=== PATIENT | male | born 1960 | race Caucasian/White ===

== ENCOUNTER 2025-04-20 14:11 | Outpatient (AMB) | payer MEDICARE, SELFPAY ==
--- NOTE | 2025-04-20 14:19 | A.OFFPC_ITS ---
Vital Signs 04/20/25 14:21 Height 5 ft 7.32 in Weight 190 lb 8 oz BMI 29.6 BP 134/86 Blood Pressure Location Lt brachial Position Sitting Respiration 14 Pulse 65 Pulse Source Pulse Oximeter Temp 98.1 F Temp Source Oral Pulse Oximetry (%) 97 Oxygen Delivery Method Room Air Intake Visit Reasons: EstMaeve Samaniego was a pt. at [place] Intake Note: New patient visit Medical Device Sales Representative Required: No Allergies No Known Allergies Allergy (Verified 04/20/25 14:21) Tobacco use date assessed: 04/20/25 Fall risk assessment: No Falls in past year Last assessed Fall Risk: 04/20/25 Dental Screening Dental Screen Date: 04/20/25 Did you have a dental visit in the last 12 months?: Yes Did you have a dental problem in the last 6 months where you did not have access to dental care?: No Was dental information given to patient?: Patient has dentist HPI HPI Comments History of Present Illness Details 64 year old male with past medical histo ry of hypertension, hyperlipidemia, GERD presenting to [facility]. Last seen in [place] in March. CV: on metoprolol 75mg daily ER, atorvastatin 40mg, Blood pressure is well controlled. Denies chest pain, shortness of breath GERD-on lansoprazole. No breakthrough symptoms on medications History of lens replacement 2001-Dr Costa Td 2024 Shingrix 2024 Colonoscopy 04/2022-5 year ROS CONSTITUTIONAL: Denies weight loss, fever and chills. HEENT: Denies changes in vision and hearing. RESPIRATORY: Denies SOB and cough. CV: Denies palpitations and CP GI: Denies abdominal pain, nausea, vomiting and diarrhea. : Denies dysuria and urinary frequency. MSK: Denies new myalgia and joint pain. SKIN: Denies rash and pruritus. NEUROLOGICAL: Denies headache PSYCHIATRIC: Denies recent changes in mood. PHYSICAL EXAM: GENERAL: Alert and oriented x 3. NAD EYES: EOMI. Anicteric. HENT: Moist mucous membranes. No scleral icterus. No cervical lymphadenopathy. LUNGS: Clear to auscultation bilaterally. CARDIOVASCULAR: Regular rate and rhythm. No murmur. No JVD. ABDOMEN: Soft, non-tender +bs EXTREMITIES: No edema. Non-tender. SKIN: No rashes or lesions. Warm. NEUROLOGIC: No focal neurological deficits. CN II-XII grossly intact PSYCHIATRIC: Cooperative. Appropriate mood and affect [facility] Medical History (Updated 04/20/25 @ 14:46 by Magdalena Graham MD) Hernia Family History (Updated 04/20/25 @ 14:28 by Yennifer Adams CMA) Mother HTN (hypertension) Diabetes Social History (Updated 04/20/25 @ 14:28 by Yennifer Adams CMA) Housing: House Alcohol intake: never Patient Tobacco Use Status: Never used Tobacco e-Cigarette/Vaping Use: Never Used Second Hand Smoke Exposure: No service: No Current occupational status: employed Current occupation: [employer] Current occupational exposures/hazards: No Cognitive needs: No Hearing needs: No Vision needs: No Questionnaire PHQ-9 Over the last 2 weeks, how often have you been bothered by any of the following problems? 1. Little interest or pleasure in doing things: not at all 2. Feeling down, depressed, or hopeless: not at all 3. Trouble falling or staying asleep, or sleeping too much: not at all 4. Feeling tired or having little energy: not at all 5. Poor appetite or overeating: not at all 6. Feeling bad about yourself - or that you are a failure or have let yourself or your family down: not at all 7. Trouble concentrating on things, such as reading the newspaper or watching television: not at all 8. Moving or speaking so slowly that other people could have noticed. Or the opposite - being so fidgety or restless that you have been moving around a lot more than usual: not at all 9. Thoughts that you would be better off or of hurting yourself in some way: not at all Total score: 0 Depression Screening Interpretation: Negative Depression Screening Done: Yes 66701 - PHQ-9 Billing: Yes Source: Developed by Drs. Rito Heredia, Tamela Hernandez, Prasad Benavidez and colleagues, with an educational maninder from [employer]. Thrive Questionnaire Date Thrive assessed: 04/20/25 I am a: Patient What is your living situation today?: I have a steady place to live Within the past 12 months, did the food you bought not last and you didn't have the money to get more?: I choose not to answer this question Within the past 12 months, did you worry whether your food would run out before you got money to buy more?: I choose not to answer this question Do you have trouble paying for medicines?: No Do you have trouble getting transportation to medical appointments?: No Do you have trouble paying your heating and electricity bill?: No Do you have trouble taking care of your child, family member or friend?: No Do you have trouble with day-to-day activities such as bathing, preparing meals, shopping, managing finances, etc.?: No Are you currently unemployed and looking for a job?: Yes Are you interested in more education?: No Please select the resources that you would like help with: None Currently or been in a relationship where the following occur: I choose not to answer THRIVE Score: 0 AUDIT C Alcohol Use Questionnaire (AUDIT-C) 1. How often do you have a drink containing alcohol?: Never 3. How often do you have six or more drinks on one occasion?: Never Total Score: 0 JOSE A-7 AMB Questionnaire JOSE A-7 Date JOSE A - 7 assessed: 04/20/25 Feeling nervous, anxious, or on edge: 0 = Not at all Not being able to stop or control worryin = Not at all Worrying too much about different things: 0 = Not at all Trouble relaxin = Not at all Being so restless that it is hard to sit still: 0 = Not at all Becoming easily annoyed or irritable: 0 = Not at all Feeling afraid as if something awful might happen: 0 = Not at all Total JOSE A-7 score (0-4 normal; 5-9 mild; 10-14 moderate; 15-21 severe): 0 Source: Developed by Drs. Rito Heredia, Tamela Hernandez, Prasad Benavidez and colleagues, with an educational maninder from [employer]. JOSE A-7 Assessment Billing JOSE A-7 Assessment Tool: JOSE A-7 Assessment 79011 Physical exam (Primary Care) Vital Signs: Last Vital Signs Temp 98.1 F 04/20/25 14:21 Pulse 65 04/20/25 14:21 Resp 14 04/20/25 14:21 BP 134/86 04/20/25 14:21 Pulse Ox 97 04/20/25 14:21 Oxygen Delivery Method Room Air 04/20/25 14:21 BMI result Body Mass Index 29.6 Tobacco/Smoking Status: Tobacco use Status Tobacco use date assessed 04/20/25 04/20/25 14:29 Patient Tobacco Use Status Never used Tobacco 04/20/25 14:29 e-Cigarette/Vaping Use Never Used 04/20/25 14:29 PHQ-9: PHQ-9 Score PHQ-9: Total score 0 04/20/25 14:29 Depression Screening Interpretation: Negative Thrive Assessment: Date of Thrive Assessment Date Thrive assessed 04/20/25 04/20/25 14:29 Currently or been in a relationship where the following occur: I choose not to answer Coding Level of Care Code Complex visit Add On G2211 Diagnoses Primary hypertension I10 Hypertension type: primary hypertension Hyperlipidemia, unspecified hyperlipidemia type E78.5 Hyperlipidemia type: unspecified Gastroesophageal reflux disease, unspecified whether esophagitis present K21.9 Esophagitis presence: esophagitis presence not specified Additional Codes JOSE A-7 Assessment Billing - JOSE A-7 Assessment Tool: JOSE A-7 Assessment 30706 ([id number]) PHQ-9 - 84170 - PHQ-9 Billing: Yes ([id number]) Assessment & Plan Assessment & Plan (1) Hypertension: Code(s): I10 - Essential (primary) hypertension Category: Medical Qualifiers: Hypertension type: primary hypertension Qualified Code(s): I10 - Essential (primary) hypertension (2) Hyperlipidemia: Code(s): E78.5 - Hyperlipidemia, unspecified Category: Medical Qualifiers: Hyperlipidemia type: unspecified Qualified Code(s): E78.5 - Hyperlipidemia, unspecified (3) GERD (gastroesophageal reflux disease): Code(s): K21.9 - Gastro-esophageal reflux disease without esophagitis Category: Medical Qualifiers: Esophagitis presence: esophagitis presence not specified Qualified Code(s): K21.9 - Gastro-esophageal reflux disease without esophagitis Plan 64 year old male to establish care. Past medical, surgical, social reviewed HTN is well controlled on current medications HLD is controlled on statin Return for MWV/CPE in six months with labs prior Orders: Orders Comprehensive Met. Panel 5 Months E78.5 - Hyperlipidemia, unspecified, I10 - Essential (primary) hypertension, K21.9 - Gastro-esophageal reflux disease without esophagitis, R73.03 - Prediabetes, Z12.5 - Encounter for screening for malignant neoplasm of prostate Complete Blood Count Auto Diff 5 Months E78.5 - Hyperlipidemia, unspecified, I10 - Essential (primary) hypertension, K21.9 - Gastro-esophageal reflux disease without esophagitis, R73.03 - Prediabetes, Z12.5 - Encounter for screening for malignant neoplasm of prostate Lipid Panel 5 Months E78.5 - Hyperlipidemia, unspecified, I10 - Essential (primary) hypertension, K21.9 - Gastro-esophageal reflux disease without esophagitis, R73.03 - Prediabetes, Z12.5 - Encounter for screening for malignant neoplasm of prostate Prostate Specific Antigen 5 Months E78.5 - Hyperlipidemia, unspecified, I10 - Essential (primary) hypertension, K21.9 - Gastro-esophageal reflux disease without esophagitis, R73.03 - Prediabetes, Z12.5 - Encounter for screening for malignant neoplasm of prostate Hemoglobin A1c 5 Months E78.5 - Hyperlipidemia, unspecified, I10 - Essential (primary) hypertension, K21.9 - Gastro-esophageal reflux disease without esophagitis, R73.03 - Prediabetes, Z12.5 - Encounter for screening for malignant neoplasm of prostate TSH reflex Free T4 5 Months E78.5 - Hyperlipidemia, unspecified, I10 - Essential (primary) hypertension, K21.9 - Gastro-esophageal reflux disease without esophagitis, R73.03 - Prediabetes, Z12.5 - Encounter for screening for malignant neoplasm of prostate
[2025-04-20 14:21] VITALS: BP 134/86; PULSE 65; RESP 14; TEMP 36.7; O2SAT 97; BMI 29.6
--- OUTSIDE RECORDS SUMMARY | 2025-04-20 20:10 | XMS_ITS ---
Author Name [facility] Organization Unknown Care Team Organization Name Specialty Phone Email Start Date End Da te [facility] Muna Redman Primary Care 03/20/2022 4
--- OUTSIDE RECORDS SUMMARY | 2025-04-20 20:10 | XMS_ITS | Clinical Summary ---
Author Organization [facility] [address] [place] [address] Address [address] [place] [address] Phone Care Team Providers Care Commercial Retoucher Name Role Phone Muna Redman MD Primary Care Provider [phone] Allergies No known active allergies Medications aspirin 81 mg EC tablet Take 1 tablet (81 mg total) by mouth 1 (one) time each day. Active atorvastatin (LIPITOR) 40 mg tablet Take 1 tablet (40 mg total) by mouth at bedtime. at bedtime. 90 tablet 1 03/18/2025 Active metoprolol succinate (TOPROL-XL) 50 mg 24 hr tablet Take 1.5 tablets (75 mg total) by mouth 1 (one) time each day. 90 tablet 1 03/18/2025 Active lansoprazole (PREVACID) [address] capsule Take 1 capsule (30 mg total) by mouth 1 (one) time each day. Do not crush or chew. 90 capsule 1 03/18/2025 Active Active Problems Problem Noted Date Diagnosed Date Tubular adenoma of colon 10/19/2020 Overview (04/24/2024): 03/09/2016, Dr. Galvez, repeat in 5 years. 05/03, 1 polyp, repeat 5 years Prediabetes 09/26/2018 HTN (hypertension) 01/28/2012 GERD (gastroesophageal reflux disease) 2 Hypercholesterolemia 07/10/2011 Overweight 07/10/2011 Diverticulosis Encounters Date Type Department Care Team Description 03/19/2025 Results Follow-Up Adult [address] [phone] Muna Redman MD 03/18/2025 2:05 PM EST Lab Draw [address] Hypercholesterolemia; Prediabetes; Primary hypertension 03/18/2025 1:45 PM EST Office Visit [address] [phone] Muna Redman MD Prediabetes (Primary Dx); Primary hypertension; Gastroesophageal reflux disease without esophagitis; Hypercholesterolemia from Last 3 Months Immunizations Immunization Administration Dates Next Due Hepatitis B Pediatric (Enger ix B; Recombivax HB) to less than 20 yo 06/04/2002,11/18/2001,08/18/2001 Influenza trivalent, 0.5mL, preservative free (Fluarix; FluLaval; Fluzone) ages 6mo and older (Afluria) 3 years and older 03/16/2014 MMR, measles mumps and rubel la Live (Priorix; M-M-R II) 12mo and older 08/18/2001,07/14/2001 Td Tetanus diptheria (Tdvax) 7yo and older 08/27,07/14/2001 Tdap Tetanus diptheria acell ular pertussis (Boostrix; Adacel) 7yo and older 09/10/2024,03/16/2014 Zoster recombinant (Shingrix ) 19yo and older 12/19/2024,10/10/2024 Surgical History Surgery Date Site/Laterality Comments HERNIA REPAIR 09/10/2005 umbilical hernia EYE SURGERY 09/04/2001 Dr. Costa ESOPHAGOGASTRODUODENOSCOPY 01/16/2006 Dr Tam - normal ESOPHAGOGASTRODUODENOSCOPY 12/12/2010 : Dr Tam - moderate antral gastritis; h. pylori negative. COLONOSCOPY 12/12/2010 Dr Tam - mild sigmoid tics; 6-7mm TA polyp at 20cm. Repeat in 5 years. COLONOSCOPY 03/09/2016 1 polyp COLONOSCOPY 04/2022 1 polyp, repeat 5 years Medical History Medical History Date Comments HTN (hypertension) GERD (gastroesophageal reflux disease) 2 Hypercholesterolemia 07/10/2011 Tubular adenoma of colon 016, Dr. Galvez, repeat in 5 years. Diverticulosis Family History Medical History Relation Name Comments Hypertension Brother diabetes Asthma Daughter Other: ulcer Father Hypertension Mother DM, CVA Hypertension Sister Relation Name Status Comments Brother Alive Daughter Alive Father Maternal Grandfather UK Maternal Grandmother UK Mother Paternal Grandfather UK Paternal Grandmother UK Sister Alive Social History Tobacco Use Types Packs/Day Years Used Date Smoking Tobacco: Never Smokeless Tobacco: Never Tobacco Cessation:Counseling Given: Not Answered Alcohol Use Standard Drinks/Week Comments No 0 (1 standard drink = 0.6 oz pur e alcohol) Housing Instability Answer Date Recorde d Are you worried that in the next 2 months you may not have stable housing? No 09/04/2024 Food Access & Nutrition Answer Date Rec orded Do you have access to a vari ety of food including fruits and vegetables? Yes 09/04/2024 Access to Healthcare Answer Date Record ed Within the last 3 months, boom hanna many times did you visit the emergency department for your medical care? 0 09/04/2024 Health Literacy Answer Date Recorded How often do you need to hav e someone help you when you read instructions, pamphlets, or other written material from your doctor or pharmacy? Sometimes 09/04/2024 Caregiver: How often do you need to have someone help you when you read instructions, pamphlets, or other written material from your doctor or pharmacy? Not on file 09/04/2024 Transportation Answer Date Recorded Has the lack of transportati on kept you from meetings, work, or from getting things needed for daily living? Yes Has the lack of transportati on kept you from medical appointments or from getting medications? Yes 09/04/2024 Social Isolation Answer Date Recorded How often do you feel lonely or isolated from th ose around you? Never 09/04/2024 Dependent Care Answer Date Recorded Do you need help finding or paying for care for your loved ones. For example, children's librarian or elderly care for an older adult? No 09/04/2024 Education Answer Date Recorded Do you think completing more education or training, like finishing a GED, going to college, or learning a trade, would be helpful for you? No 09/04/2024 Employment and Income Answer Date Recor ded During the last four weeks, have you been actively looking for work? No 09/04/2024 Living Situation Answer Date Recorded What is your living situation? Unrecognized valu e 09/04/2024 Sex and Gender Information Value Date Recorded Sex Assigned at Not on file Legal Sex Male 11:22 AM EST Gender Identity Not on file Sexual Orientation Not on file Last Filed Vital Signs Vital Sign Reading Time Taken Comments Blood Pressure 116/66 03/18/2025 1:48 PM EST Pulse 60 03/18/2025 1:48 PM EST Temperature 36.1 C (97 F) 09/09/2024 8:35 AM EDT Respiratory Rate 18 03/18/2025 1:48 PM EST Oxygen Saturation 98% 03/18/2025 1:48 PM EST Inhaled Oxygen Concentration - - Weight 86.2 kg (190 lb) 03/18/2025 1:48 PM EST Height 172.7 cm (5' 8 ) 03/18/2025 1:48 PM EST Body Mass Index 28.89 03/18/2025 1:48 PM EST Plan of Treatment Health Maintenance Due Date Last Done Comments Pneumococcal Vaccine: 50+ Years (1 of 1 - PCV) 2009 Medicare Annual Wellness Visit 04/21/2022 COVID-19 Vaccine ( - season) 2025 Influenza Vaccine (#1) 2025 03/16/2014 Social Influencers of Health Screening 09/04/2025 09/04/2024 Falls Risk Assessment 03/18/2026 03/18/2025 Hypertension/CHF/CAD Annual BMP Blood Test 03/18/2026 03/18/2025, 03/09/2024, 03/09/2024 Colorectal Cancer Screening: Colonoscopy 04/20/2027 04/20/2022 Cholesterol Screening (Lipid Panel) 03/18/2030 03/18/2025, 03/09/2024, 03/09/2024 RSV Immunization Adult Patients (1 - 1-dose 75+ series) 2034 DTaP,Tdap,and Td Vaccines (5 - Td or Tdap) 09/10/2034 09/10/2024, 03/16/2014, 08/27/2008, Additional history exists MMR Vaccines Aged Out 08/18/2001, 07/14/2001 No lo nger eligible based on patient's age to complete this topic Hepatitis B Vaccines Aged Out 06/04/2002, 11/18/2001, 08/18/2001 No longer eligible based on patient's age to complete this topic Hepatitis C Screening Completed 03/16/2014 Zoster Vaccines Discontinued 12/19/2024, 10/10/2024 Depression Screening Completed 03/18/2025, 03/09/20 24 HIB Vaccines Aged Out No longer eligi ble based on patient's age to complete this topic HPV Vaccines Aged Out No longer eligi ble based on patient's age to complete this topic Hepatitis A Vaccines Aged Out No long er eligible based on patient's age to complete this topic IPV Vaccines Aged Out No longer eligi ble based on patient's age to complete this topic Meningococcal ACWY Vaccine Aged Out N o longer eligible based on patient's age to complete this topic Meningococcal B Vaccine Aged Out No l onger eligible based on patient's age to complete this topic RSV Immunization Patients Under 20 months Aged Out No longer eligible based on patient's age to complete this topic Varicella Vaccines Aged Out No longer eligible based on patient's age to complete this topic Procedures Procedure Name Priority Date/Time Associated Diagnosis Comments HEMOGLOBIN A1C Routine 03/18/2025 2:10 PM EST Prediabetes BASIC METABOLIC PANEL Routine 03/18/2025 2:10 PM EST Prediabetes Primary hypertension LIPID PANEL WITH REFLEX TO DIRECT LDL Routine 03/18/2025 2:10 PM EST Hypercholesterolemia DEPRESSION SCREENING Routine 03/09/2024 COLONOSCOPY Routine 04/20/2022 HEPATITIS C SCREENING Routine 03/16/2014 from Last 3 Months or Most Recently Relevant to Health Maintenance Results * Lipid panel with reflex to direct LDL (03/18/2025 2:10 PM EST) Cholesterol 159 0 - 200 mg/dL LAB CHEMISTRY METHOD 03/18/2025 4:49 PM EST [facility] Triglycerides 150 0 - 150 mg/dL LAB CHEMISTRY METHOD 03/18/2025 4:49 PM [facility] HDL 62 >=40 mg/dL LAB CHEMISTRY METHOD 03/18/2025 4:49 PM [facility] LDL Calculated 67 0 - 100 mg/dL LAB CHEMISTRY METHOD 03/18/2025 4:49 PM [facility] Comment:Estimated LDL Calcul ated using equation: Total cholesterol - HDL cholesterol - (Triglycerides/5) VLDL Cholesterol Gopi 30 mg/dL LAB CHEMISTRY METHOD 03/18/2025 4:49 PM [facility] Non HDL Chol. (LDL+VLDL) 97 <145 mg/dL LAB CHEMISTRY METHOD 03/18/2025 4:49 PM [facility] Chol/HDL Ratio 2.6 0.0 - 4.4 LAB CHEMISTRY METHOD 03/18/2025 4:49 PM [facility] Blood Venous blood specimen / Unknown Venipuncture / Unknown 03/18/2025 2:10 PM EST 03/18/2025 2:10 PM EST us Muna Redman MD LAB BLOOD ORDERABLES Final Resul t [facility] [address] [place] [address], * Hemoglobin A1c (03/18/2025 2:10 PM EST) Hemoglobin A1C 6.2 <6.5 % LAB CHEMISTRY METHOD 03/18/2025 10:37 PM [facility] Mean Bld Glu Estim. 131 mg/dL LAB CHEMISTRY METHOD 03/18/2025 10:37 PM [facility] Blood Venous blood specimen / Unknown Venipuncture / Unknown 03/18/2025 2:10 PM EST 03/18/2025 2:10 PM EST us Muna Redman MD LAB BLOOD ORDERABLES Final Resul t [facility] [address] [place] [address], [place] [phone] * (ABNORMAL) Basic metabolic panel (03/18/2025 2:10 PM EST) Sodium 140 133 - 145 mmol/L LAB CHEMISTRY METHOD 03/18/2025 4:49 PM [facility] Potassium 3.8 3.5 - 5.5 mmol/L LAB CHEMISTRY METHOD 03/18/2025 4:49 PM [facility] Chloride 108 96 - 110 mmol/L LAB CHEMISTRY METHOD 03/18/2025 4:49 PM [facility] CO2 28 21 - 32 mmol/L LAB CHEMISTRY METHOD 03/18/2025 4:49 PM [facility] Anion Gap 4 3 - 11 LAB CHEMISTRY METHOD 03/18/2025 4:49 PM [facility] Glucose 138(H) 70 - 100 mg/dL LAB CHEMISTRY METHOD 03/18/2025 4:49 PM [facility] BUN 23 5 - 25 mg/dL LAB CHEMISTRY METHOD 03/18/2025 4:49 PM [facility] Creatinine 0.81 0.70 - 1.30 mg/dL LAB CHEMISTRY METHOD 03/18/2025 4:49 PM [facility] eGFR 98 >=60 mL/min/1. 73m2 LAB CHEMISTRY METHOD 03/18/2025 4:49 PM [facility] Comment:Calculation based on the Chronic Kidney Disease Epidemiology Collaboration (CKD-EPI) equation refit without adjustment for race. BUN/Creatinine Ratio 28.4 LAB CHEMISTRY METHOD 03/18/2025 4:49 PM [facility] Calcium 9.2 8.5 - 10.5 mg/dL LAB CHEMISTRY METHOD 03/18/2025 4:49 PM EST [facility] Blood Venous blood specimen / Unknown Venipuncture / Unknown 03/18/2025 2:10 PM EST 03/18/2025 2:10 PM EST Muna Redman MD LAB BLOOD ORDERABLES Final Resul t [facility] [address] [place] [address], [place] [phone] * Depression Screening (03/09/2024) [facility] Depression Screening abstracted Historical Provider HEALTH MAINTENANCE Final Result * Colonoscopy (04/20/2022) [facility] Colonoscopy normal, abstracted Anatomical Region Laterality Modality Other [facility] Provider HEALTH MAINTENANCE Final Result * Hepatitis C Screening (03/16/2014) [facility] Hepatitis C Screening abstracted Historical Provider HEALTH MAINTENANCE Final Result from Last 3 Months or Most Recently Relevant to Health Maintenance Insurance [employer]AGE Care Teams Commercial Retoucher Relationship Specialty Start Date End Date Muna Redman MD [address] [place] [address] PCP - General Internal Medicine 04/28/21
--- OUTSIDE RECORDS SUMMARY | 2025-04-20 20:11 | XMS_ITS | Encounter Summary ---
Author Organization [facility] Address [address] [place] [address] Care Team Providers Care Supply Person Name Role Phone Muna Redman MD Primary Care Provider [phone] Encounter Details Date Type Department Care Team (Late st Contact Info) Description 03/19/2025 Results Follow-Up Adult Medicine [facility] [address] [place], [place] [phone] Muna Redman MD [address] [place], [place] Social History Tobacco Use Types Packs/Day Years Used Date Smoking Tobacco: Never Smokeless Tobacco: Never Alcohol Use Standard Drinks/Week Comments No 0 [...] Record ed Within the last 3 months, ho w many times did you visit the emergency [...] care for your loved ones. For example, exceptional children teacher assistant or elderly care for an older adult? [...] on file Sexual Orientation Not on file documented as of this encounter Plan of Treatment Not on file documented as of this encounter Visit Diagnoses Not on filedocumented in this encounter Additional Health Concerns Assessment Noted Time PHQ-9 Depression Total Score: 0 09/05/19 25 8:34 PM EDT documented as of this encounter Care Teams Supply Person Relationship Specialty Start Date End Date Muna Redman MD [address] [place] [address] PCP - General Internal Medicine 04/28/21 documented as of this encounter
== END 2025-04-20 14:44 | disposition home or self-care (01) ==
LOC: HO.HMCFM 14:11
PROVIDERS: PCP Internal Medicine; Visit Provider Internal Medicine
DX: I10 Essential (primary) hypertension (principal); E78.5 Hyperlipidemia, unspecified; K21.9 Gastro-esophageal reflux disease without esophagitis

== ENCOUNTER → 2025-04-20 14:11 | Outpatient (BNVA) | payer MEDICARE, SELFPAY | PROVIDERS: PCP Student in an Organized Health Care Education/Training Program; Visit Provider Internal Medicine | DX: I10 Essential (primary) hypertension (principal); E78.5 Hyperlipidemia, unspecified; K21.9 Gastro-esophageal reflux disease without esophagitis; Z79.899 Other long term (current) drug therapy; Z13.31 Encounter for screening for depression; Z13.39 Encounter for screening examination for other mental health and behavioral disorders | CPT/HCPCS: 96127; 99212 ==